=== PATIENT | female | born 2000 | race African-American/Black ===

== ENCOUNTER 2022-03-03 14:29 | Emergency (ER) | payer BC, SELFPAY ==
--- NOTE | 2022-03-03 16:03 | ED.DENTAL ---
HPI - Dental/Oral General Chief complaint: Dental/Oral Stated complaint: tooth ache pain Time Seen by Provider: 03/03/22 16:05 Source: patient Mode of arrival: ambulatory Limitations: no limitations History of Present Illness HPI Narrative: 31-year-old who is 18 presents with concern dental pain. Reports no new injury or trauma. Reports it hurts to chew. She reports she has a dentist, does have an appointment. MD Complaint: tooth pain Related Data Home Medications Medication Instructions Recorded Confirmed Daily 1 tab-cap PO DAILY 03/03/22 03/03/22 Allergies Allergy/AdvReac Type Severity Reaction Status Date / Time amoxicillin [From Amoxil] Allergy Rash Verified 03/03/22 16:05 Penicillins Allergy Rash Verified 03/03/22 16:05 Review of Systems Review of Systems: CONSTITUTIONAL: Denies malaise, chills, sweats, or fever. EYES: Denies visual changes ENT: Denies rhinorrhea, congestion, sinus pain, otalgia or sore throat. Reports left lower dental pain CARDIOVASCULAR: Denies chest pain, palpitations RESPIRATORY: Denies cough or dyspnea. SKIN: Denies rash or itching. MUSCULOSKELETAL: Denies myalgia. NEUROLOGIC: Denies numbness, weakness, or headache. All systems reviewed & are unremarkable except as noted in HPI and below PMFSH Comments At time of signature, agree with nursing past medical, surgical, social and family history. There is no relevant family history pertinent to the presenting complaint Exam Narrative: GENERAL: Well-appearing, well-nourished, and in no acute distress. HEAD: Normocephalic, atraumatic. EYES: PERRLA, sclera clear ENT: Nares clear, turbinates pink, no rhinorrhea or epistaxis. Mucous membranes moist. TM pearly renee with sharp light reflex bilaterally; no tragal tenderness. Oropharynx without erythema or lesions. Tonsils not enlarged and without exudate. No Missing teeth, broken teeth, caries. Left Mobile tooth and the tooth #19 have surrounding erythema, some jaw swelling noted on the left NECK: Supple. No lymphadenopathy. CHEST: No respiratory distress. Speaks in full sentences. HEART: Regular rate and rhythm. SKIN: Warm, dry, no visible rash. NEURO: Alert and oriented x3. PSYCH: Normal mood and affect Course Course Emergency Course: Patient is aware of diagnosis, understands and agrees to treatment plan. Anticipatory guidance given. Patient agrees to follow-up as directed and is aware of reasons to seek care at the emergency department. Portions of this record may have been created with voice recognition software Level of Care: Express Care Visit Vital Signs Vital signs: Reviewed. MDM - Dental/Oral MDM Narrative Medical decision making narrative: Patients pain and complaint coupled with physical findings are consistant with dentalgia. There are no focal signs of space occupying lesions that are compromising to the airway; no dysphagia, odynophagia, dysphonia, or dyspnea. No uvular deviation or soft palate edema. Patient is non-toxic appearing. The floor of the mouth is soft with no signs of Zhen's Angina; no induration below mandible, no neck pain. Patient is without trismus or drooling and able to swallow secretions. Patient is felt appropriate for discharge home with dental follow up. Differential Diagnosis Differential diagnosis: Likely gingival abscess, dental caries, toothache, dental abscess, fracture of tooth and aphthous ulcer Critical Care Time Critical Care Time Critical Care Time: No Discharge Plan Discharge Clinical Impression: Toothache Patient Disposition: Home, Self-Care Condition: Stable Instructions: Antibiotic Form, Toothache (ED) Additional Instructions: Take antibiotic as directed Avoid temperature extremes May apply heat or ice to the face Gentle brushing and flossing Alternate Tylenol and ibuprofen as needed for pain Follow-up with the dentist as soon as possible Prescriptions: New clindamycin
[2022-03-03 16:05] VITALS: BP 112/67; PULSE 86; RESP 18; TEMP 36.9; O2SAT 100
== END 2022-03-03 16:12 | disposition home or self-care (01) ==
PROVIDERS: Emergency Provider Nurse Practitioner; PCP Nurse Practitioner
DX: K08.89 Other specified disorders of teeth and supporting structures (principal)
CPT/HCPCS: 99213; G0463

== ENCOUNTER 2022-06-03 10:35 | Emergency (ER) | payer BC, SELFPAY ==
--- NOTE | 2022-06-03 10:39 | ED.DENTAL ---
HPI - Dental/Oral General Chief complaint: Dental/Oral Stated complaint: tooth pain Time Seen by Provider: 06/03/22 10:45 Source: patient Mode of arrival: ambulatory Limitations: no limitations History of Present Illness HPI Narrative: Mercedes is a 21-year-old female patient presenting to the clinic today with complaints of dental pain x2 days. She report she noticed 2 days ago that her tooth was bothering her and that it was abscessed. States she has been having some issues with her teeth and has been going to the dentist. She is 34 weeks . She denies any fever or chills. Related Data Home Medications Medication Instructions Recorded Confirmed Daily 1 tab-cap PO DAILY 03/03/22 03/03/22 Allergies Allergy/AdvReac Type Severity Reaction Status Date / Time amoxicillin [From Amoxil] Allergy Rash Verified 06/03/22 10:39 Penicillins Allergy Rash Verified 06/03/22 10:39 Review of Systems Review of Systems: Pertinent positives per HPI. Patient denies any fever, chills, rash, headache, visual changes, dizziness, cough, runny nose, sore throat, shortness of breath, chest pain, palpitations, nausea, vomiting, diarrhea, constipation, abdominal pain, or any urinary issues. PMFSH Comments At the time of my signature, I reviewed and agree with the nursing past medical, surgical, social, and family history. There is no relevant family history pertinent to the patient complaint. Exam Narrative: General: Well-developed, well nourished, in no apparent distress Head: Normocephalic, atraumatic Eyes: Pupils equally round and reactive to light bilaterally, EOM intact, sclera and conjunctive clear, no discharge, lids normal Ears: TMs intact and clear, ear canals clear, no drainage, grossly hearing normal. Nose: Nares patent, no discharge, no inflammation, no sinus tenderness. Mouth: Oropharynx without lesions or masses, poor dentition, MMM. Small dental abscess to the left lower 2nd bicuspid. Neck: Supple, trachea midline, no enlargement of anterior or posterior cervical nodes, no thyroid masses or goiter palpable. Cardio: Regular rate and rhythm, s1 and s2 normal, no murmur appreciated. Resp: Clear to auscultation bilaterally anteriorly and posteriorly, no rhonchi, rales, wheezing or rubs Course Course Emergency Course: Portions of this record may have been created with voice recognition software. Level of Care: Express Care Visit Vital Signs Vital signs: Vital Signs Temperature 36.5 C 06/03/22 10:44 Pulse Rate 105 H 06/03/22 10:44 Respiratory Rate 16 06/03/22 10:44 Blood Pressure 102/59 L 06/03/22 10:44 Pulse Oximetry 100 06/03/22 10:44 Oxygen Delivery Room Air 06/03/22 10:44 Temperature 36.5 C 06/03/22 10:44 Pulse Rate 105 H 06/03/22 10:44 Respiratory Rate 16 06/03/22 10:44 Blood Pressure 102/59 L 06/03/22 10:44 Pulse Oximetry 100 06/03/22 10:44 Oxygen Delivery Room Air 06/03/22 10:44 Vital signs reviewed MDM - Dental/Oral MDM Narrative Medical decision making narrative: At the time of visit patient is resting comfortably on the exam table. I suspect patient has a dental abscess. Prescription for clindamycin was sent to the pharmacy. Supportive measures were discussed with the patient she voiced understanding of discharge instructions and agrees to treatment plan. Differential Diagnosis Differential diagnosis: Likely gingival abscess, toothache and dental abscess Discharge Plan Discharge Clinical Impression: Dental abscess Patient Disposition: Home, Self-Care Condition: Stable Instructions: Antibiotic Form, Dental Abscess (ED) Additional Instructions: Take clindamycin as prescribed Take Tylenol as needed for pain May apply heat pack or ice pack to the affected area to help alleviate pain May apply Orajel to the area as needed Follow-up with your dentist as soon as possible Go to the emergency room if symptoms worsen-high fev
[2022-06-03 10:44] VITALS: BP 102/59; PULSE 105; RESP 16; TEMP 36.5; O2SAT 100
--- NOTE | 2022-06-03 10:46 | PC.NURSE ---
motor rebuilder at bedside [id number]
== END 2022-06-03 10:52 | disposition home or self-care (01) ==
PROVIDERS: Emergency Provider Nurse Practitioner Family
DX: K04.7 Periapical abscess without sinus (principal)
CPT/HCPCS: 99213; G0463